=== PATIENT | female | born 1955 | race Caucasian/White ===

== ENCOUNTER → 2016-12-01 | Outpatient (CLI) | payer OTHER ==
[~2016-12-01] MED LIST: ALBUAER INH; AZITHROMYCIN OPB; CALCTAB5 PO; CHOL200027 PO; CIPR-255 PO; CITA10TA8 PO; CITA20TA9 PO; ERYTHROMYCIN TOP; HYDR-5688 PO; HYDR1CAP85 PO; MAGN250T22 PO; POTA10CA28 PO; ZINC 25 MG; flax seed; vit d 3 PO
--- NOTE | 2016-12-01 14:16 | DIAGNOSTIC IMAGING REPORT ---
RIGHT LOWER EXTREMITY VENOUS DOPPLER CLINICAL HISTORY: Right lower extremity pain. COMPARISON STUDY: No previous studies for comparison. TECHNIQUE: Sonography of the deep venous system of the right lower extremity was performed. Compression and augmentation were evaluated. FINDINGS: The common femoral, superficial femoral and popliteal veins were compressible. Augmentation was normal. Flow was shown within the deep calf vessels. IMPRESSION: No evidence of deep venous thrombus within the right lower extremity. Electronically signed by: Boni Foreman M.D. 12/01/2016 2:14 PM Dictated Date/Time: 12/01/2016 2:13 PM
== END | disposition home or self-care (01) ==
LOC: C.ULTRBC 13:31
PROVIDERS: ATTEND Family Medicine
DX: M79.604 Pain in right leg (principal)

== ENCOUNTER 2017-01-06 09:37 | Emergency (ER) | payer OTHER ==
[~2017-01-06] VITALS: Ht 165.1 cm; Wt 72.7 kg
[~2017-01-06 09:37] MED LIST changes: -CHOL200027 PO; -CITA20TA9 PO; -HYDR-5688 PO; -MAGN250T22 PO; -POTA10CA28 PO
[2017-01-06] MEDS ORDERED: SODIUM CHLORIDE 0.9% 1000ML 1,000 ML IV ONE (10:00)
[2017-01-06 10:01] VITALS: TEMP 36.6; Ht 165.1 cm; Wt 72.7 kg
[2017-01-06] MEDS ORDERED: OPTIRAY 320 IV PRN (10:15)
--- NOTE | 2017-01-06 10:29 | DIAGNOSTIC IMAGING REPORT ---
CHEST ONE VIEW PORTABLE CLINICAL HISTORY: Syncope COMPARISON STUDY: 12/10/2011 FINDINGS: The heart is mildly enlarged. There is tortuosity/ectasia of ascending thoracic aorta. There is no lobar consolidation. There are no pleural effusions. There is mild central vascular prominence.[ IMPRESSION: 1. Aortic tortuosity/ectasia 2. Mild vascular prominence without evidence for overt failure 3. No evidence of focal pulmonary consolidation Electronically signed by: Arslan Heath M.D. 01/06/2017 10:28 AM Dictated Date/Time: 01/06/2017 10:27 AM
[2017-01-06] MEDS ORDERED: HYDR-5688 PO (10:32)
[2017-01-06 10:46] LABS: BASO % 0.5 %; BASO ABS # 0.05 K/uL (0-0.2); COMPLETE YES; EOS % 1.2 %; IG% 0.3 %; LYMPH ABS # 0.79 K/uL (1.2-3.4); MEAN CELL VOLUME 94.8 fL (80-100); MEAN CORPUSCULAR HEMOGLOBIN 31.5 pg (25-34); MEAN CORPUSCULAR HGB CONC 33.3 g/dl (32-36); MEAN PLATELET VOLUME 9.3 fL (7.4-10.4); MONO % 8.2 %; NEUT % 81.8 %; PLATELET COUNT 196 K/uL (130-400); RED BLOOD COUNT 4.22 M/uL (4.2-5.4); WHITE BLOOD COUNT 9.83 K/uL (4.8-10.8)
[2017-01-06 10:55] LABS: INR 0.9 (0.9-1.1); PARTIAL THROMBOPLASTIN RATIO 0.8
[2017-01-06 11:06] LABS: BUN/CREATININE RATIO 16.9 (10-20); CALCIUM 8.9 mg/dl (8.5-10.1); MAGNESIUM 1.9 mg/dl (1.8-2.4); POTASSIUM 3.7 mmol/L (3.5-5.1)
[2017-01-06 11:16] LABS: ALB/GLOB RATIO 1.3 (0.9-2); CKMB/CK RATIO 1.6 (0-3.0); THYROID STIMULATING HORMONE 2.3 uIu/ml (0.300-4.500)
[2017-01-06 12:14] LABS: URINE APPEARANCE CLEAR (CLEAR); URINE BILIRUBIN NEG (NEG); URINE COLOR YELLOW; URINE EPITHELIAL CELL AUTO 20-30 /lpf (0-5); URINE NITRITE NEG (NEG); URINE SPECIFIC GRAVITY 1.007 (1.000-1.030); UROBILINOGEN NEG (NEG); ZZUR CULT IF INDIC CLEAN CATCH NO
[2017-01-06 12:21] LABS: MANUAL MICROSCOPIC REQUIRED? NO; REVIEW REQ? NO
--- NOTE | 2017-01-06 12:59 | DIAGNOSTIC IMAGING REPORT ---
CT HEAD WITHOUT CONTRAST (CT) CLINICAL HISTORY: Syncope COMPARISON STUDY: No previous studies for comparison. TECHNIQUE: Axial CT of the brain is performed from the vertex to the skull base. IV contrast was not administered for this examination. CT DOSE: 614.27 mGy.cm FINDINGS: No intra or extra-axial mass lesions are visualized. There is no CT evidence of acute cortical infarction. There is no evidence of midline shift. There is no acute hemorrhage. No calvarial fractures are visualized. There are minor white matter hypodensities likely on a small vessel basis. There is no evidence of pathologic ventricular dilatation. There is no evidence of acute sinusitis IMPRESSION: No acute intracranial findings Electronically signed by: Arslan Heath M.D. 01/06/2017 12:58 PM Dictated Date/Time: 01/06/2017 12:56 PM
--- NOTE | 2017-01-06 13:04 | DIAGNOSTIC IMAGING REPORT ---
CHEST CTA for PULMONARY ARTERIES CT DOSE: 397.06 mGy.cm HISTORY: Chest pain syncope TECHNIQUE: Multiaxial CT images of the chest were performed following the intravenous administration of contrast to evaluate the pulmonary arteries. Maximal intensity projection images were also obtained. COMPARISON STUDY: None. FINDINGS: There is a normal caliber thoracic aorta with no evidence for dissection. There is no evidence for pulmonary embolus. No pleural effusions. No pneumothorax. The liver and spleen are unremarkable. No mediastinal or hilar lymphadenopathy. The central airways are patent. The lungs are clear. IMPRESSION: No evidence for pulmonary embolus. Lungs are clear. Mild cardiomegaly. Electronically signed by: Bakari Thomson M.D. 01/06/2017 1:02 PM Dictated Date/Time: 01/06/2017 12:59 PM
[2017-01-06 14:51] VITALS: BP 141/75; PULSE 71; O2SAT 96
--- NOTE | 2017-01-07 14:27 | EMERGENCY ROOM VISIT NOTE ---
History First contact with patient: 09:42 Chief Complaint: SYNCOPE Stated Complaint: SYNCOPE Nursing Triage Summary: pt arrives via EMS reports on oxycontin for chronic r hip problems took her reg pain meds this AM and drank a cup of coffee sat down on chair and "passed out" reports when I awoke I was diaphoretic and dissoriented and"washed out" report cough X 3 days denies mucus production History of Present Illness The patient is a 61 year old female who presents to the Emergency Room with complaints of syncopal episode that occurred at home this morning. The patient states that she got her for her morning is normal, making her coffee, and went to sit in her rocking chair. She typically reads or works in her journal in the morning, and was starting to do this when she became lightheaded. The patient states that she "passed out", however she did not fall out of her chair or hit the ground. She is unsure how long she was out for, but her coffee was still or when she woke up. The patient has a recent history of some right-sided low back pain, and did take Vicodin this morning on an empty stomach. She has also had some mild head cold symptoms, and took an over-the- counter decongestant. Otherwise she has not had any changes in her medication. She is fever or chills. No chest pain, chest tightness, or shortness of breath for after the event. She does not have persistent discomfort or other extremity pain. She does feel tired. She rates her discomfort a 2/10. Review of Systems More than 10 systems were reviewed and otherwise negative with the exception of history of present illness. Past Medical/Surgical History History of asthma Family History No pertinent family history Social History Smoking Status: Never Smoker Current/Historical Medications Scheduled Albuterol Sulfate (Proventil Hfa), 1 PUFF PO DAILY Cholecalciferol (Vitamin D-3), 2,000 UNITS PO DAILY Magnesium Oxide (Magnesium), 1 TAB PO DAILY Potassium Chloride (Micro-K Ext Rel), 10 MEQ PO DAILY Scheduled PRN Hydrocodone/Acetaminophen 5MG/325MG ([place] 5MG/325MG), 1 TAB PO Q8 PRN for Pain Allergies Coded Allergies: Azithromycin (Verified Allergy, Severe, RASH, SHORT OF BREATH, 01/06/17) Albuterol (Verified Allergy, Intermediate, rash, short of breath, 01/06/17) unsure-- used in nebulizer Lorazepam (Verified Allergy, Intermediate, hallucinations, 01/06/17) Cephalexin (Verified Allergy, Mild, RASH, 01/06/17) Chlorhexidine (Verified Allergy, Mild, itchy and burning, 01/06/17) Hydrocortisone (Verified Allergy, Mild, RASH, 01/06/17) Isopropyl Alcohol (Verified Allergy, Mild, itchy and burning, 01/06/17) Mometasone (Verified Allergy, Mild, RASH, 01/06/17) Nystatin (Verified Allergy, Mild, RASH, 01/06/17) Acetaminophen (Verified Allergy, Unknown, vasovagal, shock symtoms, ) Propoxyphene (Verified Allergy, Unknown, DARVOCET- UNKNOWN RXN, 01/06/17) Hydrocodone (Verified Adverse Reaction, Intermediate, vasovagal, shock symtoms, 01/06/17) Amoxicillin (Verified Adverse Reaction, Mild, TIREDNESS, 01/06/17) Clavulanic Acid (Verified Adverse Reaction, Mild, abdominal cramping, 01/06) Codeine (Verified Adverse Reaction, Mild, TYLENOL W/CODEINE-LETHARGY, 01/06) Hydromorphone (Verified Adverse Reaction, Mild, hallucination/nausea, 01/06) Moxifloxacin (Verified Adverse Reaction, Mild, FATIGUE, 01/06/17) PT ON CIPRO PO AT HOME Physical Exam Vital Signs Date Time Temp Pulse Resp B/P Pulse Ox O2 Delivery O2 Flow Rate FiO2 01/06/17 14:51 71 141/75 96 Room Air 01/06/17 12:57 91 18 152/77 96 Room Air 01/06/17 12:23 92 18 159/79 99 Room Air 01/06/17 10:05 72 01/06/17 10:01 36.6 70 20 157/74 100 Room Air Pain Rating (0-10): 2.0 Physical Exam VITALS: Vitals are noted on the nurse's note and reviewed by myself. Vital signs stable. GENERAL: Well-developed, well-nourished, white female, who is in no acute distress and resting comfortably. Patient is cooperative with the examination. GCS 15. HEAD: Normocephalic atraumatic. EARS: External ear normal. External auditory canals clear, tympanic membranes pearly spaulding without erythema or effusion bilaterally. EYES: Pupils equal round and reactive to light and accommodation. Conjunctivae without injection, sclerae without icterus. Extraocular movements intact. NOSE: Patent, turbinates without inflammation or discharge. MOUTH: Mucous membranes moist. Tonsils are not enlarged. Pharynx without erythema, blood, or exudate. Uvula midline. Airway patent. NECK: Supple without nuchal rigidity. No lymphadenopathy. No thyromegaly. Cervical spine is nontender. HEART: Regular rate and rhythm without murmurs gallops or rubs. LUNGS: Clear to auscultation bilaterally without wheezes, rales or rhonchi. No retractions or accessory muscle use. ABDOMEN: Positive normal bowel sounds x 4. Soft, nontender, without masses or organomegaly. No guarding or rebound tenderness. MUSCULOSKELETAL: No muscle atrophy, erythema, or edema noted. Full range of motion without joint tenderness in all extremities. NEURO: Patient was alert and oriented to person place and time. CN II through XII grossly intact. No focal neurological deficits Medical Decision & Procedures ER Provider Diagnostic Interpretation: CT HEAD WITHOUT CONTRAST (CT) CLINICAL HISTORY: Syncope COMPARISON STUDY: No previous studies for comparison. TECHNIQUE: Axial CT of the brain is performed from the vertex to the skull base. IV contrast was not administered for this examination. CT DOSE: 614.27 mGy.cm FINDINGS: No intra or extra-axial mass lesions are visualized. There is no CT evidence of acute cortical infarction. There is no evidence of midline shift. There is no acute hemorrhage. No calvarial fractures are visualized. There are minor white matter hypodensities likely on a small vessel basis. There is no evidence of pathologic ventricular dilatation. There is no evidence of acute sinusitis IMPRESSION: No acute intracranial findings CHEST CTA for PULMONARY ARTERIES CT DOSE: 397.06 mGy.cm HISTORY: Chest pain syncope TECHNIQUE: Multiaxial CT images of the chest were performed following the intravenous administration of contrast to evaluate the pulmonary arteries. Maximal intensity projection images were also obtained. COMPARISON STUDY: None. FINDINGS: There is a normal caliber thoracic aorta with no evidence for dissection. There is no evidence for pulmonary embolus. No pleural effusions. No pneumothorax. The liver and spleen are unremarkable. No mediastinal or hilar lymphadenopathy. The central airways are patent. The lungs are clear. IMPRESSION: No evidence for pulmonary embolus. Lungs are clear. Mild cardiomegaly. CHEST ONE VIEW PORTABLE CLINICAL HISTORY: Syncope COMPARISON STUDY: 12/10/2011 FINDINGS: The heart is mildly enlarged. There is tortuosity/ectasia of ascending thoracic aorta. There is no lobar consolidation. There are no pleural effusions. There is mild central vascular prominence.[ IMPRESSION: 1. Aortic tortuosity/ectasia 2. Mild vascular prominence without evidence for overt failure 3. No evidence of focal pulmonary consolidation Laboratory Results 01/06/17 10:05 Red Blood Count 4.22, Mean Corpuscular Volume 94.8, Mean Corpuscular Hemoglobin 31.5, Mean Corpuscular Hemoglobin Concent 33.3, Mean Platelet Volume 9.3, Neutrophils (%) (Auto) 81.8, Lymphocytes (%) (Auto) 8.0, Monocytes (%) (Auto) 8.2, Eosinophils (%) (Auto) 1.2, Basophils (%) (Auto) 0.5, Neutrophils # (Auto) 8.03, Lymphocytes # (Auto) 0.79, Monocytes # (Auto) 0.81, Eosinophils # (Auto) 0.12, Basophils # (Auto) 0.05 01/06/17 10:05 Test 01/06/17 10:05 01/06/17 10:07 01/06/17 10:12 01/06/17 11:20 White Blood Count 9.83 K/uL (4.8-10.8) Red Blood Count 4.22 M/uL (4.2-5.4) Hemoglobin 13.3 g/dL (12.0-16.0) Hematocrit 40.0 % (37-47) Mean Corpuscular Volume 94.8 fL (80-100) Mean Corpuscular Hemoglobin 31.5 pg (25-34) Mean Corpuscular Hemoglobin Concent 33.3 g/dl (32-36) Platelet Count 196 K/uL (130-400) Mean Platelet Volume 9.3 fL (7.4-10.4) Neutrophils (%) (Auto) 81.8 % Lymphocytes (%) (Auto) 8.0 % Monocytes (%) (Auto) 8.2 % Eosinophils (%) (Auto) 1.2 % Basophils (%) (Auto) 0.5 % Neutrophils # (Auto) 8.03 K/uL (1.4-6.5) Lymphocytes # (Auto) 0.79 K/uL (1.2-3.4) Monocytes # (Auto) 0.81 K/uL (0.11-0.59) Eosinophils # (Auto) 0.12 K/uL (0-0.5) Basophils # (Auto) 0.05 K/uL (0-0.2) RDW Standard Deviation 43.9 fL (36.4-46.3) RDW Coefficient of Variation 12.8 % (11.5-14.5) Immature Granulocyte % (Auto) 0.3 % Immature Granulocyte # (Auto) 0.03 K/uL (0.00-0.02) Prothrombin Time 10.0 SECONDS (9.0-12.0) Prothromb Time International Ratio 0.9 (0.9-1.1) Activated Partial Thromboplast Time 21.9 SECONDS (21.0-31.0) Partial Thromboplastin Ratio 0.8 Anion Gap 9.0 mmol/L (3-11) Est Creatinine Clear Calc Drug Dose 57.5 ml/min Estimated GFR () 69.4 Estimated GFR (Non- 59.9 BUN/Creatinine Ratio 16.9 (10-20) Calcium Level 8.9 mg/dl (8.5-10.1) Magnesium Level 1.9 mg/dl (1.8-2.4) Total Bilirubin 0.4 mg/dl (0.2-1) Aspartate Amino Transf (AST/SGOT) 38 U/L (15-37) Alanine Aminotransferase (ALT/SGPT) 74 U/L (12-78) Alkaline Phosphatase 51 U/L (45-117) Total Creatine Kinase 103 U/L (26-192) Creatine Kinase MB 1.6 ng/ml (0.5-3.6) Creatine Kinase MB Ratio 1.6 (0-3.0) Total Protein 7.1 gm/dl (6.4-8.2) Albumin 4.0 gm/dl (3.4-5.0) Globulin 3.1 gm/dl (2.5-4.0) Albumin/Globulin Ratio 1.3 (0.9-2) Thyroid Stimulating Hormone (TSH) 2.300 uIu/ml (0.300-4.500) Bedside Glucose 89 mg/dl (70-90) Bedside Troponin I 0.000 ng/ml (0-0.045) Influenza Type A Antigen Neg for Influ A (NEG) Influenza Type B Antigen Neg for Influ B (NEG) Test 01/06/17 11:49 Urine Color YELLOW Urine Appearance CLEAR (CLEAR) Urine pH 7.0 (4.5-7.5) Urine Specific [place] 1.007 (1.000-1.030) Urine Protein NEG (NEG) Urine Glucose (UA) NEG (NEG) Urine Ketones NEG (NEG) Urine Occult Blood 1+ (NEG) Urine Nitrite NEG (NEG) Urine Bilirubin NEG (NEG) Urine Urobilinogen NEG (NEG) Urine Leukocyte Esterase NEG (NEG) Urine WBC (Auto) 1-5 /hpf (0-5) Urine RBC (Auto) 5-10 /hpf (0-4) Urine Hyaline Casts (Auto) 0 /lpf (0-5) Urine Epithelial Cells (Auto) 20-30 /lpf (0-5) Urine Bacteria (Auto) NEG (NEG) Medications Administered Medications (Trade) Dose Ordered Sig/Pedro Route Start Time Stop Time Status Last Admin Dose Admin Sodium Chloride (Nss 1000ml) 1,000 ml @ 999 mls/hr Q1H1M ONCE IV 01/06/17 10:00 01/06/17 11:00 DC 01/06/17 10:00 999 MLS/HR ED Course Physical exam and history were performed. Nursing notes and EMR were reviewed. Patient appears to have had an episode of syncope at home. The episode is odd because the patient was not exertional at this time the stable episode occurred. She does not appear to have any injury or persisting of her symptoms. Patient is typically healthy, however she does have a past history of cancer. Because of this I did have concern for the patient's well-being. IV access was established and labs were obtained. The patient was hydrated and medicated as above. She certainly could have a cardiopulmonary event or dysrhythmic episode to explain her symptoms. I did elect to perform a CT scan of both her head and chest. EKG was performed and was normal sinus rhythm without ischemia or significant ectopy. The patient's blood work is as above and was reviewed. She does not have a significantly elevated white blood cell count, anemia, bandemia, or gross electrolyte imbalance. Lipase and transaminases are nondiagnostic. Urinalysis without signs of infection. Influenza swab was negative. The patient's imaging studies do not show evidence of acute findings to explain the patient's symptoms. Overall the patient was monitored on the vehicle monitor technician for greater than 5 hours here in the emergency department. She did not have any ectopy or dysrhythmic episodes. I discussed the case with my attending physician, Dr. Zhang, and we feel the patient is stable for discharge home. She has had a negative evaluation here with multiple normal testings. I do suspect that her symptoms were from taking both cold medicine and Vicodin on an empty stomach this morning. The patient does have a preference for discharge home, and this does appear reasonable. The patient will need to follow with her PCP or haunted history tour guide with any ongoing or persisting symptoms. She was recently went back to the ER with any new, worsening, or concerning episodes. The chart was completed utilizing [employer] Voice Recognition Software. Grammatical errors, random word insertions, pronoun errors, and incomplete sentences are an occasional consequence of this system due to software limitations, ambient noise, and hardware issues. Any formal questions or concerns about the content, text, or information contained within the body of this dictation should be directly addressed to the provider for clarification. . Medical Decision Differential diagnosis: Etiologies such as vasovagal event, infection, hypoglycemia, electrolyte abnormalities, cardiac sources, intracerebral event, toxicologic, neurologic, as well as others were entertained. Impression Primary Impression: Syncope Departure Information Dispostion Home / Self-Care Condition GOOD Referrals Jose Ramon Brown D.O. (PCP) Forms HOME CARE DOCUMENTATION FORM, IMPORTANT VISIT INFORMATION Patient Instructions My [facility] Additional Instructions You were seen and evaluated today on an emergency basis only. This is not a substitute for, or an effort to provide, complete comprehensive medical care. It is not possible to recognize and treat all injuries or illnesses in a single emergency department visit. For this reason it is recommended that you followup with your primary care physician and haunted history tour guide this week for ongoing care and evaluation. Drink plenty fluids and remain well hydrated. You are welcome to return to the emergency department anytime with new, worsening, or concerning symptoms.
[2017-06-27] MEDS ORDERED: CHOL200027 PO (10:32)
[2017-06-27] MEDS ORDERED: MAGN250T22 PO (10:32)
[2017-06-27] MEDS ORDERED: ALBUAER INH (10:32)
[2017-06-27] MEDS ORDERED: POTA10CA28 PO (10:32)
== END 2017-01-06 15:03 | disposition home or self-care (01) ==
LOC: EDBD 09:37 → C.EDA 09:38
DX: R55 Syncope and collapse (principal); J45.909 Unspecified asthma, uncomplicated; Z79.899 Other long term (current) drug therapy; Z88.1 Allergy status to other antibiotic agents; Z88.5 Allergy status to narcotic agent; Z88.8 Allergy status to other drugs, medicaments and biological substances; Z85.9 Personal history of malignant neoplasm, unspecified

== ENCOUNTER → 2017-02-18 | Outpatient (CLI) | payer OTHER ==
[~2017-02-18] MED LIST changes: -AZITHROMYCIN OPB; -CALCTAB5 PO; +CHOL200027 PO; -CIPR-255 PO; -CITA10TA8 PO; +CITA20TA9 PO; -ERYTHROMYCIN TOP; +HYDR-5688 PO; -HYDR1CAP85 PO; +MAGN250T22 PO; +POTA10CA28 PO; -ZINC 25 MG; -flax seed; -vit d 3 PO
--- NOTE | 2017-02-18 08:44 | DIAGNOSTIC IMAGING REPORT ---
LUMBAR SPINE MRI HISTORY: Low back pain and right hip pain. TECHNIQUE: Multiplanar multisequence MRI of the lumbar spine was performed without the use of contrast. COMPARISON: Lumbar spine 08/28/2015. FINDINGS: For the purpose of the report the L5-S1 disc space will be located on axial image 27 of 30. There is 3 mm of anterolisthesis of L4 and L5. Severe disc space narrowing at L5-S1. Remaining disc spaces are preserved. No fracture or subluxation. Marrow edema within the right L4-L5 pedicles. No fractures identified. The conus terminates at the L1 level. 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 L1-L2: No significant central canal or neural foraminal narrowing. L2-L3: No significant central canal or neural foraminal narrowing. Tiny broad-based posterior disc bulge with a tiny left foraminal annular tear. L3-L4: No significant central canal or neural foraminal narrowing. Tiny broad-based posterior disc bulge. L4-L5: Tiny broad-based posterior disc bulge with a left foraminal annular tear. No disc herniations identified. There is a 13 x 9 x 9 cm T2 hyperintense, T1 hypointense extra dural structure abutting the right L4-5 facet. This protrudes into the right side of the central canal and compresses the transiting right L5 nerve root and displaces the transiting right S1 nerve root. This demonstrates a hypointense rim and likely represents a synovial cyst. Moderate facet degenerative changes at this level. This results in mild right-sided central canal narrowing. There is also mild bilateral neural foraminal narrowing. L5-S1: Tiny broad-based posterior disc bulge without significant central canal narrowing. There is mild right and moderate left neural foraminal narrowing. IMPRESSION: There is a 13 x 9 x 9 cm T2 hyperintense, T1 hypointense extradural structure abutting the right L4-5 facet. This protrudes into the right side of the central canal and compresses the transiting right L5 nerve root and displaces the transiting right S1 nerve root. This demonstrates a hypointense rim and likely represents a synovial cyst. Electronically signed by: Lui Aviles M.D. 02/18/2017 8:42 AM Dictated Date/Time: 02/18/2017 8:19 AM
== END | disposition home or self-care (01) ==
LOC: C.MRIBC 07:13
PROVIDERS: ATTEND Orthopaedic Surgery
DX: M54.5 Low back pain (principal)

== ENCOUNTER 2017-06-27 21:22 | Emergency (ER) | payer OTHER ==
[~2017-06-27] VITALS: Ht 165.1 cm; Wt 72.0 kg
[~2017-06-27 21:22] MED LIST changes: -CITA20TA9 PO
[2017-06-27 21:34] VITALS: TEMP 37; Ht 165.1 cm; Wt 72.0 kg
[2017-06-27] MEDS ORDERED: GELATIN SPONGE 12-7MM ONE (21:50)
[2017-06-27 22:09] VITALS: BP 111/60; PULSE 70; O2SAT 95
[2017-06-27] MEDS ORDERED: CITA20TA9 PO (22:09)
--- NOTE | 2017-06-27 22:32 | EMERGENCY ROOM VISIT NOTE ---
ED Visit Note First contact with patient: 21:41 CHIEF COMPLAINT: Finger laceration HISTORY OF PRESENT ILLNESS: This 62 yo patient presents to the emergency department after cutting the distal aspect of the right first finger on a grater. The bleeding has not stopped. Denies weakness or numbness of the finger. The patient has full range of motion of the fingers. The patient rates the pain as mild and 2/10. The patient denies any other injuries. The patient' s tetanus shot is up to date. REVIEW OF SYSTEMS: A 6 system review of systems was completed with positives and pertinent negatives listed in the HPI. ALLERGIES: Albuterol, reviewed MEDICATIONS: Reviewed PMH: Anxiety, hysterectomy, reviewed SOCIAL HISTORY: No drug use PHYSICAL EXAM: Vital Signs: Reviewed Nurse's notes, vital signs stable. GENERAL : Pleasant female, in no acute distress, well developed, well nourished. SKIN: There is a 5 mm skin avulsion to the distal aspect of the right thumb. The edges do not gape apart with traction. There is no foreign material in the wound and it looks clean. There is bleeding. No deep structures such as tendons , bones, or significant blood vessels are seen in the base of the wound. Extension and flexion of the finger is full and strong. Full range of motion of the wrist and other fingers. Capillary refill less than 2 seconds. Normal sensation to light and sharp touch. EMERGENCY DEPARTMENT COURSE: I examined the patient. There is cleansed and Gelfoam was placed. Bandage is placed over this. Hemostasis was achieved. Patient was counseled on signs and symptoms of infection and on wound care. All cushions are answered. She is advised to return to the ER immediately for severe pain, fever, redness, worsening signs or symptoms or as needed. The patient was discharged home in good condition. DIAGNOSIS: Right thumb skin avulsion DISCHARGE INSTRUCTIONS & TREATMENT: As below Current/Historical Medications Scheduled Cholecalciferol (Vitamin D-3), 2,000 INTER.UNIT PO DAILY Citalopram Hydrobromide (Celexa), 20 MG PO DAILY Magnesium Oxide (Magnesium), 250 MG PO DAILY Potassium Chloride (Micro-K Ext Rel), 10 MEQ PO DAILY Scheduled PRN Albuterol Sulfate (Proventil Hfa), 2 PUFFS INH UD PRN for Prior to Exercise Allergies Coded Allergies: Azithromycin (Verified Allergy, Severe, RASH, SHORT OF BREATH, 01/06/17) Albuterol (Verified Allergy, Intermediate, rash, short of breath, 01/06/17) unsure-- used in nebulizer Lorazepam (Verified Allergy, Intermediate, hallucinations, 01/06/17) Cephalexin (Verified Allergy, Mild, RASH, 01/06/17) Chlorhexidine (Verified Allergy, Mild, itchy and burning, 01/06/17) Hydrocortisone (Verified Allergy, Mild, RASH, 01/06/17) Isopropyl Alcohol (Verified Allergy, Mild, itchy and burning, 01/06/17) Mometasone (Verified Allergy, Mild, RASH, 01/06/17) Nystatin (Verified Allergy, Mild, RASH, 01/06/17) Propoxyphene (Verified Allergy, Unknown, DARVOCET- UNKNOWN RXN, 01/06/17) Amoxicillin (Verified Adverse Reaction, Mild, TIREDNESS, 01/06/17) Clavulanic Acid (Verified Adverse Reaction, Mild, abdominal cramping, 01/06) Hydromorphone (Verified Adverse Reaction, Mild, hallucination/nausea, 01/06) Moxifloxacin (Verified Adverse Reaction, Mild, FATIGUE, 01/06/17) PT ON CIPRO PO AT HOME Vital Signs Date Time Temp Pulse Resp B/P (MAP) Pulse Ox O2 Delivery O2 Flow Rate FiO2 06/27/17 22:09 70 18 111/60 95 06/27/17 21:34 37.0 80 18 129/67 94 Room Air Departure Information Impression Primary Impression: Avulsion of skin of finger Dispostion Home / Self-Care Condition GOOD Referrals Jose Ramon Brown, D.O. (PCP) No Doctor, Assigned Forms WORK / SCHOOL INSTRUCTIONS, HOME CARE DOCUMENTATION FORM, IMPORTANT VISIT INFORMATION Patient Instructions My [facility], ED Avulsion Dermal Additional Instructions Keep dressing in place for 48 hrs, then remove. Soak foam in water until it falls off easily, then clean wound daily, cover with an antibiotic ointment and keep covered until it heals. Return for any signs of infection (increasing redness, swelling, drainage, fever). Ice and elevate for swelling and pain. Ibuprofen 600 mg and Tylenol 1000 mg every 6 hrs for pain (Maximum 3000 mg Tylenol in 24 hr period). Keep covered when in sun until fully healed then SPF 50 or higher for one year. Vitamin E oil if desired two weeks after fully healed for reduction of scar.
== END 2017-06-27 22:09 | disposition home or self-care (01) ==
LOC: C.EDB 21:23 → C.EDC 22:09
DX: S61.001A Unspecified open wound of right thumb without damage to nail, initial encounter (principal); F41.9 Anxiety disorder, unspecified; Z79.899 Other long term (current) drug therapy; W27.4XXA Contact with kitchen utensil, initial encounter

== ENCOUNTER 2019-09-20 03:08 | Observation (INO) ==
--- OUTSIDE RECORDS SUMMARY | 2019-09-20 03:11 | External Medical Summary | Continuity of Care Document ---
:1955 Author Name Yuki Bolden, Provider Address Unavailable Unavailable , Care Team Providers Name Role Phone NonMNPG Yuan, Provider Unavailable [email or web address] Dye Unavailable Unavailable Unavailable Unavailable Unavailable Problems Uterine cancer (179) (C55) Allergies and Adverse Reactions Augmentin TABS (Allergy) Avelox TABS (Allergy) Cortisone POWD (Allergy) Dilantin CAPS (Allergy) Keflex TABS (Allergy) Nasonex SUSP (Allergy) Medications Erythromycin GEL Refills: 0 Charmaine Allergy 180 MG Oral Tablet Refills: 0 Proventil HFA AERS Refills: 0 Calcium TABS Refills: 0 LORazepam TABS Refills: 0 Dexamethasone TABS Refills: 0 Zofran TABS Refills: 0 Procedures History of Tonsillectomy Status: Complet ed History of Hysterectomy Status: Complete d Immunizations Immunizations not documented Social History - Smoking Status Never smoker Plan of Treatment Planned Observations Planned Goals not documented Results No Known Results Results not documented
[2019-09-20 03:37] LABS: Basophils # (auto) 0.03 K/uL (0-0.2); Basophils % (auto) 0.3 %; Eosinophils # (auto) 0.52 K/uL (0-0.5); Eosinophils % (auto) 5.9 %; Hematocrit (blood only) 41.2 % (37-47); Hemoglobin 13.4 g/dL (12.0-16.0); Immature Granulocytes # (auto) 0.01 K/uL (0.00-0.02); Immature Granulocytes % (auto) 0.1 %; Lymphocytes # (auto) 2.78 K/uL (1.2-3.4); Lymphocytes % (auto) 31.4 %; Mean Corpuscular Hemoglobin 30.8 pg (25-34); Mean Corpuscular Hgb Conc 32.5 g/dL (32-36); Mean Corpuscular Volume 94.7 fL (80-100); Mean Platelet Volume 9.4 fL (7.4-10.4); Monocytes # (auto) 0.74 K/uL (0.11-0.59); Monocytes % (auto) 8.4 %; Neutrophils # (auto) 4.77 K/uL (1.4-6.5); Neutrophils % (auto) 53.9 %; Platelet Count 233 K/uL (130-400); RDW Standard Deviation 45.5 fL (36.4-46.3); Red Blood Count 4.35 M/uL (4.2-5.4); White Blood Count 8.85 K/uL (4.8-10.8)
[2019-09-20 03:58] LABS: Alanine Aminotransferase 27 U/L (12-78); Albumin Level 4.1 gm/dl (3.4-5.0); Aspartate Aminotransferase 18 U/L (15-37); BUN Creatinine Ratio 15.7 (10-20); Blood Urea Nitrogen 17 mg/dl (7-18); Calcium 9.6 mg/dl (8.5-10.1); Carbon Dioxide 28 mmol/L (21-32); Chloride 105 mmol/L (98-107); Creatinine Clr Calc Pharmacy 50.9 ml/min; Est GFR (African American) 62.7; Est GFR (Non-African American) 54.1; Glucose 103 mg/dl (70-99); Lipase 118 U/L (73-393); Potassium 3.5 mmol/L (3.5-5.1); Sodium 140 mmol/L (136-145)
[2019-09-20 04:03] LABS: Albumin Globulin Ratio 1.2 (0.9-2); Alkaline Phosphatase 74 U/L (45-117); Bilirubin,Total 0.4 mg/dl (0.2-1); Globulin 3.5 gm/dl (2.5-4.0); Total Protein 7.6 gm/dl (6.4-8.2); Troponin I < 0.015 ng/ml (0-0.045)
[2019-09-20] MEDS ORDERED: ASPIRIN CHEW 324 MG PO STA (04:11)
[2019-09-20] MEDS ORDERED: KETOROLAC 30 MG/ML VIAL IV STA (04:11)
--- NOTE | 2019-09-20 05:32 | Emergency Department Note ---
Entered by Barbara Roman acting as a scribe for History of Present Illness General Chief complaint: Chest Pain Stated complaint: SHARP PAIN IN CHEST,RT SIDE OF NECK,SHOULDER PAIN Time Seen by Provider: 09/20/19 03:13 Source: patient History of Present Illness Onset (ago): hour(s) 4 Location: chest (right-sided) Pain Consistency: + other (persistent ) Maximum Pain Intensity: 6 Quality: + sharp Exacerbated By: + other (deep breaths; lying on her side ) Associated symptoms: + other (positive neck pain; positive base of head pain; positive right shoulder pain; negative abdominal pain); no diaphoresis and no shortness of breath Treatments prior to arrival: other (volteran gel) The patient is a 64 year old female who presents to the Emergency Room with complaints of persistent right-sided chest pain that began approximately 4 hours prior to arrival. The patient describes this as sharp. The patient reports that 30 minutes prior to this she had some neck pain, put some voltaren gel on it, and went to bed. The patient states that when she woke up with her chest pain, she had some pain at the base of her head, down her neck, and into her right shoulder. The patient states that her chest pain is exacerbated with lying on her side and deep breaths. The patient denies abdominal pain, shortness of breath, and sweating. She states that she sees Cardiology regularly for her history of PVCs. The patient states that she returned from a trip to [facility] [place] approximately 3 weeks ago. The patient states that she has a history of uterine and ovarian cancer. Home Medications Home Medications Medication Instructions Recorded Confirmed Type albuterol sulfate 2 puff INHALATION DIRECTED PRN 09/20/19 09/20/19 History calcium carbonate-vitamin D3 1 tab PO BID 09/20/19 09/20/19 History [Calcium 600 + D(3)] cholecalciferol (vitamin D3) 2,000 unit PO DAILY 09/20/19 09/20/19 History [Vitamin D3] diclofenac sodium [Voltaren] 2 g TOPICAL DIRECTED PRN 09/20/19 09/20/19 History erythromycin with ethanol 1 applic TOPICAL DIRECTED PRN 09/20/19 09/20/19 History levothyroxine 50 mcg PO DAILY 09/20/19 09/20/19 History magnesium 250 mg PO DAILY 09/20/19 09/20/19 History potassium chloride 10 meq PO DAILY 09/20/19 09/20/19 History Allergies Allergy/AdvReac Type Severity Reaction Status Date / Time mivacurium Allergy Severe RASH, Verified 09/20/19 03:43 SHORT OF BREATH azithromycin Allergy Intermediate SOB, RASH Verified 09/20/19 03:43 lorazepam Allergy Intermediate hallucinati Verified 09/20/19 03:43 ons cephalexin Allergy Mild RASH Verified 09/20/19 03:43 chlorhexidine Allergy Mild itchy and Verified 09/20/19 03:43 burning hydrocortisone Allergy Mild RASH Verified 09/20/19 03:43 mometasone furoate Allergy Mild RASH Verified 09/20/19 03:43 nystatin Allergy Mild RASH Verified 09/20/19 03:43 propoxyphene Allergy Unknown DARVOCET- Verified 09/20/19 03:43 UNKNOWN RXN methocarbamol [From Robaxin] AdvReac Severe SEVERE Verified 09/20/19 03:43 TREMORS miconazole [From Monistat 7] AdvReac Intermediate VAGINAL Verified 09/20/19 03:43 BURNING amoxicillin AdvReac Mild TIREDNESS Verified 09/20/19 03:43 clavulanic acid AdvReac Mild abdominal Verified 09/20/19 03:43 cramping hydromorphone AdvReac Mild hallucinati Verified 09/20/19 03:43 on/nausea moxifloxacin AdvReac Mild FATIGUE Verified 09/20/19 03:43 DELTAZONE/PREDIZONE Allergy Severe MENTALLY Uncoded 09/20/19 03:43 UNABLE TO FUNCTION OR DO ADL'S, AGGRESSIVENESS. Past Med/Surg History Medical History Ovarian cancer PVCs (premature ventricular contractions) Uterine cancer Family History Other No pertinent family history in first degree relatives Social History Preferred Language: Monegasque Feels Safe at Home: Yes Smoking Status: Never smoker Review of Systems See HPI for pertinent positives & negatives. and A total of 10 systems reviewed and were otherwise negative Physical Exam Vital Signs Vital Signs - 24 hr 09/20/19 03:11 09/20/19 03:23 09/20/19 03:24 Temperature 36.3 C L Temperature Source Oral Sepsis Recent Fever Within 48 Hours No Sepsis New/Unexplained Change in Mental Status No Sepsis Action Taken by Nursing No Action Required Pulse Rate 80 77 81 Pulse Rate from SpO2 Sensor 82 Respiratory Rate 16 20 28 H Blood Pressure 150/82 H 169/94 H Blood Pressure Mean 104 119 Pulse Oximetry 98 99 98 Oxygen Delivery Method Room Air Room Air 09/20/19 03:27 09/20/19 03:30 09/20/19 04:00 Temperature Temperature Source Sepsis Recent Fever Within 48 Hours Sepsis New/Unexplained Change in Mental Status Sepsis Action Taken by Nursing Pulse Rate 79 77 74 Pulse Rate from SpO2 Sensor 77 77 74 Respiratory Rate 24 19 14 Blood Pressure Blood Pressure Mean Pulse Oximetry 99 96 97 Oxygen Delivery Method 09/20/19 04:19 09/20/19 04:30 09/20/19 05:00 Temperature Temperature Source Sepsis Recent Fever Within 48 Hours Sepsis New/Unexplained Change in Mental Status Sepsis Action Taken by Nursing Pulse Rate 87 83 70 Pulse Rate from SpO2 Sensor 80 71 Respiratory Rate 20 21 15 Blood Pressure 158/95 H 170/85 H 137/82 Blood Pressure Mean 116 113 100 Pulse Oximetry 97 95 Oxygen Delivery Method HEENT: Head - normocephalic and atraumatic Pupils are equal, round, and reactive to light. Extraocular eye muscles are intact, and sclera are anicteric. Nose - moist nasal mucosa without discharge. Mouth - moist buccal mucosa. Oropharynx is nonerythematous and there is no tonsillar exudate or edema noted. Neck: Supple; no JVD, nuchal rigidity, cervical lymphadenopathy Heart: Regular rate and rhythm. There is a normal S1 and S2 with no murmurs, clicks, or gallops appreciated. Lungs: Clear to auscultation bilaterally with no wheezes, rales, or rhonchi. Abdomen: Soft, completely nontender, nondistended, with good bowel sounds. There are no palpable pulsatile masses or hepatosplenomegaly. There is no guarding, rigidity, or rebound noted. Extremities: No evidence of cyanosis, clubbing, or edema. There are easily palpable peripheral pulses. Skin: warm and dry with good turgor and no rashes. Course 0316: Past medical records reviewed. The patient was evaluated in room B4B. A complete history and physical exam was performed. A twelve-lead EKG was obtained. An IV lock was initiated and labs were drawn as above. The patient will have a chest x-ray performed. 0405: Upon reevaluation, the patient is still having pain. She states that this pain is more in her neck than in her chest. She will get Toradol and Aspirin. 0412: Ordered Aspirin 324 mg PO and Toradol 30 mg IV. 0440: I answered the patient's questions about her ECG. She has had significant relief of her discomfort. 0446: [facility] the [facility] the patient for further evaluation. Administered Medications Discontinued Medications Aspirin (Aspirin) 324 mg PO NOW STA Stop: 09/20/19 04:12 Last Admin: 09/20/19 04:17 Dose: 324 mg Documented by: [id number] Ketorolac Tromethamine (Toradol) 30 mg IV NOW STA Stop: 09/20/19 04:12 Last Admin: 09/20/19 04:17 Dose: 30 mg Documented by: [id number] Medical Decision Making Differential Diagnosis Differential diagnoses include costochondritis, anxiety, PE, GERD, cardiac ischemia, and others were considered. Medical Records Attestation: I reviewed the patient's medical records. Home Medications Current Medication List: was personally reviewed by me Laboratory Data Attestation: I reviewed the patient's lab results. Result diagrams: 09/20/19 03:24 09/20/19 03:24 Lab Results 09/20/19 09/20/19 Range/Units 03:24 03:24 WBC 8.85 (4.8-10.8) K/uL RBC 4.35 (4.2-5.4) M/uL Hgb 13.4 (12.0-16.0) g/dL Hct 41.2 (37-47) % MCV 94.7 (80-100) fL MCH 30.8 (25-34) pg MCHC 32.5 (32-36) g/dL RDW Std Deviation 45.5 (36.4-46.3) fL RDW Coeff of Chemo 13.0 (11.5-14.5) % Plt Count 233 (130-400) K/uL MPV 9.4 (7.4-10.4) fL Immature Gran % (Auto) 0.1 % Neut % (Auto) 53.9 % Lymph % (Auto) 31.4 % Izard % (Auto) 8.4 % Eos % (Auto) 5.9 % Baso % (Auto) 0.3 % Immature Gran # (Auto) 0.01 (0.00-0.02) K/uL Neut # (Auto) 4.77 (1.4-6.5) K/uL Lymph # (Auto) 2.78 (1.2-3.4) K/uL Izard # (Auto) 0.74 H (0.11-0.59) K/uL Eos # (Auto) 0.52 H (0-0.5) K/uL Baso # (Auto) 0.03 (0-0.2) K/uL Sodium 140 (136-145) mmol/L Potassium 3.5 (3.5-5.1) mmol/L Chloride 105 (98-107) mmol/L Carbon Dioxide 28 (21-32) mmol/L Anion Gap 7.0 (3-11) BUN 17 (7-18) mg/dl Creatinine 1.07 (0.6-1.2) mg/dl Est Cr Clr Drug Dosing 50.9 ml/min Est GFR ( Amer) 62.7 Est GFR (Non-Af Amer) 54.1 BUN/Creatinine Ratio 15.7 (10-20) Glucose 103 H (70-99) mg/dl Calcium 9.6 (8.5-10.1) mg/dl Total Bilirubin 0.4 (0.2-1) mg/dl AST 18 (15-37) U/L ALT 27 (12-78) U/L Alkaline Phosphatase 74 (45-117) U/L Troponin I < 0.015 (0-0.045) ng/ml Total Protein 7.6 (6.4-8.2) gm/dl Albumin 4.1 (3.4-5.0) gm/dl Globulin 3.5 (2.5-4.0) gm/dl Albumin/Globulin Ratio 1.2 (0.9-2) Lipase 118 (73-393) U/L Imaging Data Attestation: I personally reviewed and interpreted this imaging study as follows: My Impression: CHEST X-RAY 1 VIEW: Borderline cardiomegaly. No pulmonary infiltrates. No focal pulmonary consolidation. ECG Data Attestation: I personally reviewed and interpreted this ECG as follows: Indication: + chest pain Rate (beats per minute): 77 Rhythm: + normal sinus ECG ST segments: + T-wave inversions ECG Findings: no PACs and no PVCs Comparison ECG Date: from (04/26/19) Change: the following changes noted (T-wave inversions are new ) Blood Pressure Blood Pressure Findings: Elevated blood pressure Blood Pressure Disposition: further management by hospitalist MDM Narrative The patient is a 64 year old female who presents to the Emergency Room with complaints of persistent right-sided chest pain that began approximately 4 hours prior to arrival. The patient does have a history of long distance travel approximately 3 weeks ago as well as a remote history of cancer so we considered the possibility of a PE. However, the patient has absolutely no shortness of breath, tachycardia or hypoxia. Chest x-ray was unremarkable. EKG changes are somewhat atypical but still concerning in the inferior leads. I discussed the case with the [facility] Hospitalist and they will evaluate for further management. Impression & Plan Right-sided chest pain, Acute electrocardiogram changes, Neck pain on right side Discharge Plan Visit Data Chief Complaint: Chest Pain Stated Complaint: SHARP PAIN IN CHEST,RT SIDE OF NECK,SHOULDER PAIN ED Provider: Carley Angeles Discharge Problem: Right-sided chest pain, Acute electrocardiogram changes, Neck pain on right side Patient Disposition: Being Evaluated by Hospitalist Forms Stand Alone Forms: Call Back Authorization, [facility] Prescriptions Prescriptions: No Action potassium chloride 10 mEq Capsule, Extended Release 10 meq PO DAILY RF: 0 calcium carbonate-vitamin D3 [Calcium 600 + D(3)] 600 mg(1,500mg) -200 unit Tablet 1 tab PO BID RF: 0 levothyroxine 50 mcg Tablet 50 mcg PO DAILY RF: 0 magnesium 250 mg Tablet 250 mg PO DAILY RF: 0 albuterol sulfate 90 mcg/actuation Hfa Aerosol Inhaler 2 puff INHALATION DIRECTED PRN (Reason: 15 MIN PRIOR TO EXERCISE.) RF: 0 erythromycin with ethanol 2 % solution 1 applic topical DIRECTED PRN (Reason: [place] AREAS) RF: 0 diclofenac sodium [Voltaren] 1 % Gel 2 g TOPICAL DIRECTED PRN (Reason: Pain) RF: 0 cholecalciferol (vitamin D3) [Vitamin D3] 2,000 unit Capsule 2,000 unit PO DAILY RF: 0 Referrals Referrals: Jose Ramon Brown, DO [Primary Care Provider] - The scribe's documentation has been prepared under my direction and personally reviewed by me in its entirety. I confirm that the note above accurately reflects all work, treatment, procedures, and medical decision making performed by me.
--- NOTE | 2019-09-20 06:08 | XRay Report ---
XR chest 1V portable CLINICAL HISTORY: Chest Pain pain COMPARISON STUDY: 01/06/2017 FINDINGS: The bones soft tissues and hemidiaphragms are normal. The cardiomediastinal silhouette is n ormal. The lungs are clear. The pulmonary vasculature is normal. IMPRESSION: Negative chest. The above report was generated using voice recognition software. It may contain grammatical, syntax or spelling errors. Electronically signed by: Bakari Thomson M.D. 09/20/2019 6:06 AM
[2019-09-20] MEDS ORDERED: MoRPHine SULFATE 2 MG/ML CARP IV PRN (06:14)
[2019-09-20] MEDS ORDERED: ONDANSETRON INJ 2 MG/ML 2 ML VIAL IV PRN (06:14)
[2019-09-20] MEDS ORDERED: NITROGLYCERIN SL 0.4 MG/TAB TAB SL PRN (06:14)
[2019-09-20] MEDS ORDERED: ALBUTEROL HFA 8 GM INHALER INH PRN (06:14)
[2019-09-20] MEDS ORDERED: DICLOFENAC SOD 1% GEL 100 GM TUBE EXT PRN (06:14)
[2019-09-20] MEDS ORDERED: ACETAMINOPHEN 325 MG TAB PO PRN (06:14)
[2019-09-20] MEDS ORDERED: LEVOTHYROXINE SODIUM 50 MCG TABLET PO SCH (07:00)
[2019-09-20 07:31] LABS: D Dimer 450 ug/L FEU (0-500)
--- NOTE | 2019-09-20 07:57 | History and Physical Report ---
DATE OF ADMISSION: 09/20/2019 CHIEF COMPLAINT: Chest pain. HISTORY OF PRESENT ILLNESS: This is a 64-year-old female with past medical history significant for hypothyroidism, history of reactive depression, history of uterine and ovarian cancer status post hysterectomy with oophorectomy and status post 3 cycles of chemo, history of ventricular ectopy, was on beta david for 3 months in the past, chronic rhinitis, history of left Loomis's palsy, hip dysplasia who lives alone, comes because of chest pain. The patient says before she went to sleep, she had right-sided neck pain and in the night she woke up and the neck pain radiated to the chest, moderate in severity. She could not take a deep breath causing the pain to be more, so she drove herself to the ER. From the parking lot she walked into the ER, she had to hunch her shoulders and seemed to be making the pain little worse. In the ER, she got aspirin and Toradol. Neck pain, chest pain got resolved now, she is resting comfortably. She still has some mild pain while taking deep breath. Resting comfortably and hemodynamically stable. Denies any shortness of breath, no nausea, sweating or dizziness this episode. No fever, no chills, has on and off dry cough since a month. No headaches, no blurred visions, no earache, no runny nose, no sore throat, no dysphagia. Appetite is okay. Sleeps okay. Otherwise, ambulates and climbs steps okay without any problems. No abdominal pain. Normal bowel and bladder movements. No black stools or blood in stools, no burning micturition or hematuria. No swelling, no rash. ALLERGIES: ROBAXIN, CHLORHEXIDINE, NYSTATIN, AZITHROMYCIN, CEPHALEXIN, DILAUDID, KEFLEX, ECONAZOLE, MONISTAT, MOMETASONE FUROATE. PAST MEDICAL HISTORY: As mentioned above. PAST SURGICAL HISTORY: Total abdominal hysterectomy with appendectomy, lumbosacral epidural shot, right lumbar hemilaminectomy, removal of tonsils, total abdominal hysterectomy radical dissection for debulk with removal of the tubes, trimalleolar ankle fracture repair. MEDICATIONS: The patient is on diclofenac sodium 2 g b.i.d. p.r.n., levothyroxine 50 mcg daily, potassium chloride 10 mEq daily, albuterol 2 puffs p.r.n., erythromycin 2% solution applied to face p.r.n., Claritin 10 mg p.o. daily p.r.n., magnesium 250 mg p.o. daily, vitamin D 2000 units p.o. daily, calcium plus vitamin D 2 tablets daily. FAMILY HISTORY: Significant for father had alcoholism, arthritis, AV maggie failure, hypertension. Mother has anemia, breast cancer, liver cancer, thyroid disorder. Sister of septicemia. SOCIAL HISTORY: Lives alone. No smoking. Alcohol occasional. No drug use. REVIEW OF SYMPTOMS: As per HPI. Rest of review of systems negative. PHYSICAL EXAMINATION: GENERAL: The patient is of moderate build, not in acute distress. VITAL SIGNS: Temperature 36.3, pulse 70, respiratory rate 15, blood pressure 137/82, oxygen 98% room air. HEENT: No pallor, no icterus. Pupils equal, round, reactive to light. NECK: No JVD. No lymphadenopathy, no carotid bruit. CARDIOVASCULAR: S1, S2 heard, regular rate and rhythm, no murmur, no gallop. RESPIRATORY SYSTEM: Normal AP diameter. No accessory muscle use. No wheezing, no crackles. ABDOMEN: Soft, bowel sounds present, nontender. No distention. CENTRAL NERVOUS SYSTEM: Cranial nerves II-XII grossly nonfocal. EXTREMITIES: No edema, no erythema. LABORATORY DATA: WBC 8.8, hemoglobin 13.0, hematocrit 41.2, platelets 233. Sodium 144, potassium 3.5, chloride 105, bicarbonate 28, BUN 17, creatinine 1.07, serum glucose 103, calcium 9.6, total bilirubin 0.4, AST of 18, ALT 27, alkaline phosphatase is 74. Troponin I less than 0.015. Lipase 118. IMAGING: Chest x-ray: No acute findings seen. EKG: Shows normal sinus rhythm with rate of 77, possible left atrial enlargement, nonspecific T-wave inversions in lead III and aVF. This T-wave inversions were present in 12/2016 EKG but in EKG done in 04/2019 there were no T-wave inversions. ASSESSMENT AND PLAN: This is a 64-year-old female who presents with chest pain. 1. Chest pain, presents with right-sided neck pain radiating to the chest. The pain was more when taking deep breath, improved with dose of aspirin and dose of Toradol. Troponin is negative. EKG shows some T-wave inversions in leads III and aVF which were present in the previous EKG in 2017, but were absent in 2019 EKG. Follows with Cardiology once a year because of history of premature ventricular contractions in the past, was on beta david in 2012 for 3 months and on potassium supplement and magnesium supplement currently. The pain was more when taking deep breath . Possible pleurisy. We will check a D-dimer and we will observe in tele floor. Serial cardiac enzymes, echo and consult Cardiology for possible stress test. 2. History of uterine and ovarian cancer diagnosed in 2011, stage I, status post total abdominal hysterectomy with oophorectomy and appendectomy, had 3 cycles of chemo, follows with Hematology/Oncology every year. 3. Hypothyroidism, on Synthroid. 4. Deep venous thrombosis prophylaxis, sequential compression devices. 5. Disposition: Observation in tele floor. Expect to discharge home and follow with her family doctor. Level 1 full code, only if good chance of recovery. MTDD
[2019-09-20] MEDS ORDERED: POTASSIUM CHLORIDE 10 MEQ TABCR PO SCH (09:00)
[2019-09-20] MEDS ORDERED: MAGNESIUM OXIDE 400 MG TAB PO SCH (09:00)
[2019-09-20] MEDS ORDERED: CALCIUM CARBONATE 1250MG TAB PO SCH (09:00)
[2019-09-20] MEDS ORDERED: CHOLECALCIFEROL 1,000 UNITS TAB PO SCH (09:00)
--- NOTE | 2019-09-20 10:58 | Cardiology Consultation ---
Date of Consultation September 20, 2019 Assessment & Plan (1) Neck pain on right side: Symptoms appear noncardiac in nature. Troponins, EKG and echocardiogram not concerning Given mild pleuritic complaints on initial presentation and recent long air travel, borderline d-dimer,Lower extremity duplex will be ordered We will make no other changes in medications and if study returns negative patient may be discharged to follow-up with primary care physician Return to see myself in 3 months time (2) Right-sided chest pain: As above (3) Hypothyroidism: Patient on replacement with pending lab work we will add TSH to previously drawn lab work today if History of Present Illness Reason for Consultation: Right neck pain Requesting Physician: Dr. Diaz Attending Physician: Elizabeth iVctoria, DO History of Present Illness Patient is a 64-year-old female who I previously followed as an outpatient with issues as noted 1. Chronic atrial and ventricular ectopy in the setting of acute illness, chemotherapy 2. Mild valvular heart disease with aortic sclerosis and mild aortic and mitral insufficiency 3. Hypothyroidism 4. Prior uterine ovarian carcinoma status post chemotherapy. Patient is referred now having presented to the emergency room last night after developing right neck pain that ultimately radiated to the shoulder and chest symptoms are worse with movement. Notes no tachypalpitations syncope near syncope orthopnea or worsening peripheral edema. No exertional relationship. No recent exertional activities or injuries. No fevers chills or productive cough.. No bleeding difficulties. Appetite and weight stable. No change in exercise tolerance or activity No issues with hypertension, diabetes. Has recently returned from overseas travel, long flight Pain relieved with Toradol in the emergency room. Troponin is nondetectable x2 EKG reveals minor nonspecific T-segment changes not significant change from prior studies Echocardiogram preserved LV systolic function Allergies Allergy/AdvReac Type Severity Reaction Status Date / Time mivacurium Allergy Severe RASH, Verified 09/20/19 03:43 SHORT OF BREATH azithromycin Allergy Intermediate SOB, RASH Verified 09/20/19 03:43 lorazepam Allergy Intermediate hallucinati Verified 09/20/19 03:43 ons cephalexin Allergy Mild RASH Verified 09/20/19 03:43 chlorhexidine Allergy Mild itchy and Verified 09/20/19 03:43 burning hydrocortisone Allergy Mild RASH Verified 09/20/19 03:43 mometasone furoate Allergy Mild RASH Verified 09/20/19 03:43 nystatin Allergy Mild RASH Verified 09/20/19 03:43 propoxyphene Allergy Unknown DARVOCET- Verified 09/20/19 03:43 UNKNOWN RXN methocarbamol [From Robaxin] AdvReac Severe SEVERE Verified 09/20/19 03:43 TREMORS miconazole [From Monistat 7] AdvReac Intermediate VAGINAL Verified 09/20/19 03:43 BURNING amoxicillin AdvReac Mild TIREDNESS Verified 09/20/19 03:43 clavulanic acid AdvReac Mild abdominal Verified 09/20/19 03:43 cramping hydromorphone AdvReac Mild hallucinati Verified 09/20/19 03:43 on/nausea moxifloxacin AdvReac Mild FATIGUE Verified 09/20/19 03:43 DELTAZONE/PREDIZONE Allergy Severe MENTALLY Uncoded 09/20/19 03:43 UNABLE TO FUNCTION OR DO ADL'S, AGGRESSIVENESS. Home Medications Home Medications Medication Instructions Recorded Confirmed Type albuterol sulfate 2 puff INHALATION DIRECTED PRN 09/20/19 09/20/19 History calcium carbonate-vitamin D3 1 tab PO BID 09/20/19 09/20/19 History [Calcium 600 + D(3)] cholecalciferol (vitamin D3) 2,000 unit PO DAILY 09/20/19 09/20/19 History [Vitamin D3] diclofenac sodium [Voltaren] 2 g TOPICAL DIRECTED PRN 09/20/19 09/20/19 History erythromycin with ethanol 1 applic TOPICAL DIRECTED PRN 09/20/19 09/20/19 History levothyroxine 50 mcg PO DAILY 09/20/19 09/20/19 History magnesium 250 mg PO DAILY 09/20/19 09/20/19 History potassium chloride 10 meq PO DAILY 09/20/19 09/20/19 History Patient History Medical History Ovarian cancer PVCs (premature ventricular contractions) Uterine cancer Family History Other No pertinent family history in first degree relatives Social History Preferred Language: Surinamese Communication Ability: Effective 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 Beliefs That Will Affect Care: None Current Living Situation: Alone Feels Safe at Home: Yes Safety Concerns: Feels Safe At This Time Smoking Status: Never smoker Do You Dip or Chew Tobacco: No ; Second Hand Exposure: Yes ; Hx Alcohol Use: Yes Alcohol type: beer and wine Hx Substance Use: No Review of Systems Review of Systems: All systems reviewed & are unremarkable except as noted in HPI & below Physical Exam Constitutional: WD/WN, vitals as above Eyes: PERRL, conjunctivae normal, anicteric sclerae ENMT: external ear and nose normal, oropharynx normal Neck: trachea midline, no thyromegaly Respiratory: normal respiratory effort, lungs clear to auscultation Cardiovascular: Rate/Rhythm: regular rate and regular rhythm Heart Sounds: normal S1, normal S2, + gallop (Chronic S4) and + murmur (Grade 1/6 to 2/6 systolic no diastolic) Palpation: normal PMI Vessels: normal carotid upstroke and radial pulses present; no JVD and no carotid bruit Extremities: + edema (Trace) Gastrointestinal (Abdomen): normal bowel sounds, soft, nontender, no hepatosplenomegaly Musculoskeletal: no cyanosis or clubbing, extremities motor strength 5/5 No palpable cord or Homans Skin: no rashes, warm and dry Neurologic: PERRL, EOMI, accommodation nl, no face palsy, no dysarthria Psychiatric: A+Ox3, euthymic affect Results & Data Vital Signs (Past 12 Hours) Vital Signs Temp Pulse Pulse Resp BP BP Pulse Ox 09/20/19 07:28 36.5 C 77 18 132/66 97 09/20/19 06:06 36.6 C 78 16 159/78 H 100 09/20/19 05:30 75 14 139/85 97 09/20/19 05:00 70 15 137/82 95 09/20/19 04:30 83 21 170/85 H 97 09/20/19 04:19 87 20 158/95 H 09/20/19 04:00 74 14 97 09/20/19 03:30 77 19 96 09/20/19 03:27 79 24 99 09/20/19 03:24 81 28 H 169/94 H 98 09/20/19 03:23 77 20 99 09/20/19 03:11 36.3 C L 80 16 150/82 H 98
--- NOTE | 2019-09-20 11:42 | Ultrasound Report ---
US venous doppler LE BI CLINICAL HISTORY: 64 years-old Female presenting with borderline d dimer, pleuritic pain, over[place] ight. TECHNIQUE: Real-time grayscale and color and spectral Doppler ultrasound imaging of the veins of the bilateral lower extremities was performed. Compression and augmentation were also utilized. COMPARISON: 12/01/2016. FINDINGS: RIGHT: Common femoral vein: Patent. Greater saphenous vein (superficial): Patent. Deep femoral vein: Patent. Femoral vein: Patent. Popliteal vein: Patent. Calf veins: Patent. LEFT: Common femoral vein: Patent. Greater saphenous vein (superficial): Patent. Deep femoral vein: Patent. Femoral vein: Patent. Popliteal vein: Patent. Calf veins: Patent. Other: None. IMPRESSION: No evidence of deep venous thrombosis. Electronically signed by: Alin Santos M.D. 09/20/2019 11:41 AM
[2019-09-20 12:52] LABS: Troponin I < 0.015 ng/ml (0-0.045)
--- NOTE | 2019-09-20 12:54 | Discharge Summary ---
Date of Service September 20, 2019 Admission HPI Per Admitting Provider HISTORY OF PRESENT ILLNESS: This is a 64-year-old female with past medical history significant for hypothyroidism, history of reactive depression, history of uterine and ovarian cancer status post hysterectomy with oophorectomy and status post 3 cycles of chemo, history of ventricular ectopy, was on beta david for 3 months in the past, chronic rhinitis, history of left Loomis's palsy, hip dysplasia who lives alone, comes because of chest pain. The patient says before she went to sleep, she had right-sided neck pain and in the night she woke up and the neck pain radiated to the chest, moderate in severity. She could not take a deep breath causing the pain to be more, so she drove herself to the ER. From the parking lot she walked into the ER, she had to hunch her shoulders and seemed to be making the pain little worse. In the ER, she got aspirin and Toradol. Neck pain, chest pain got resolved now, she is resting comfortably. She still has some mild pain while taking deep breath. Resting comfortably and hemodynamically stable. Denies any shortness of breath, no nausea, sweating or dizziness this episode. No fever, no chills, has on and off dry cough since a month. No headaches, no blurred visions, no earache, no runny nose, no sore throat, no dysphagia. Appetite is okay. Sleeps okay. Otherwise, ambulates and climbs steps okay without any problems. No abdominal pain. Normal bowel and bladder movements. No black stools or blood in stools, no burning micturition or hematuria. No swelling, no rash. Admission Exam Per Admitting Provider PHYSICAL EXAMINATION: GENERAL: The patient is of moderate build, not in acute distress. VITAL SIGNS: Temperature 36.3, pulse 70, respiratory rate 15, blood pressure 137/82, oxygen 98% room air. HEENT: No pallor, no icterus. Pupils equal, round, reactive to light. NECK: No JVD. No lymphadenopathy, no carotid bruit. CARDIOVASCULAR: S1, S2 heard, regular rate and rhythm, no murmur, no gallop. RESPIRATORY SYSTEM: Normal AP diameter. No accessory muscle use. No wheezing, no crackles. ABDOMEN: Soft, bowel sounds present, nontender. No distention. CENTRAL NERVOUS SYSTEM: Cranial nerves II-XII grossly nonfocal. EXTREMITIES: No edema, no erythema. Principal Diagnosis atypical chest pain Discharge Exam CONSTITUTIONAL: WNWD, vitals as above, generally well-appearing EYES: normal conjunctivae, no scleral icterus ENT: MMM RESPIRATORY: clear to auscultation bilaterally, no crackles, rales or wheezes, normal respiratory effort CARDIOVASCULAR: regular rate and rhythm, S1 and 2 heard without murmurs, gallops or rubs, no JVD, no peripheral edema CHEST: inspection of chest was normal GASTROINTESTINAL: soft, nontender, nondistended MUSCULOSKELETAL: strength 5/5 throughout, head is normocephalic and atraumatic, normal palpation of chest wall without tenderness SKIN: warm and dry NEUROLOGIC: CN 2-12 grossly intact, no gross focal deficits. PSYCHIATRIC: alert cooperative and oriented to person, place and time. Discharge Data Allergies Allergy/AdvReac Type Severity Reaction Status Date / Time mivacurium Allergy Severe RASH, Verified 09/20/19 03:43 SHORT OF BREATH azithromycin Allergy Intermediate SOB, RASH Verified 09/20/19 03:43 lorazepam Allergy Intermediate hallucinati Verified 09/20/19 03:43 ons cephalexin Allergy Mild RASH Verified 09/20/19 03:43 chlorhexidine Allergy Mild itchy and Verified 09/20/19 03:43 burning hydrocortisone Allergy Mild RASH Verified 09/20/19 03:43 mometasone furoate Allergy Mild RASH Verified 09/20/19 03:43 nystatin Allergy Mild RASH Verified 09/20/19 03:43 propoxyphene Allergy Unknown DARVOCET- Verified 09/20/19 03:43 UNKNOWN RXN methocarbamol [From Robaxin] AdvReac Severe SEVERE Verified 09/20/19 03:43 TREMORS miconazole [From Monistat 7] AdvReac Intermediate VAGINAL Verified 09/20/19 03:43 BURNING amoxicillin AdvReac Mild TIREDNESS Verified 09/20/19 03:43 clavulanic acid AdvReac Mild abdominal Verified 09/20/19 03:43 cramping hydromorphone AdvReac Mild hallucinati Verified 09/20/19 03:43 on/nausea moxifloxacin AdvReac Mild FATIGUE Verified 09/20/19 03:43 DELTAZONE/PREDIZONE Allergy Severe MENTALLY Uncoded 09/20/19 03:43 UNABLE TO FUNCTION OR DO ADL'S, AGGRESSIVENESS. Consultations 09/20/19 04:42 ED Decision to Admit Stat Ordered Studies 09/20/19 10:12 US venous doppler [facility] Urgent Hospital Course (1) Atypical chest pain: 64-year-old female with a family history of CAD and no other risk factors presented with acute onset of right lower neck pain radiating into her central chest area. She was given tramadol in the ER which improved her pain. She was also given Toradol 30 mg IV, aspirin 324 mg p.o. Chest x-ray was unremarkable. Consideration was given to possible blood clot as she had a recent international trip. A d-dimer was negative and lower extremity Dopplers were performed and negative. Her initial troponin was negative and serial troponins were negative. She remained in sinus rhythm on telemetry overnight. EKG revealed normal sinus rhythm with a nonspecific T wave abnormality with no evidence of acute ischemia. Her pain did not recur and the following morning cardiology saw her and felt the pain was related to a noncardiac etiology. She had a repeat echocardiogram that revealed an ejection fraction of 60 to 65% with normal left ventricular systolic function and normal wall motion. She had mild aortic regurgitation. At time of discharge she was mentating emulating at baseline and tolerating p.o. She was afebrile and oxygenating well on room air. She was pain-free. She was sent home in stable condition with close primary care follow-up recommended. Total Time Total Time Spent Total Time Spent (In Minutes): 60 Total Time Includes: Examination of the Patient, Discharge Planning, Medication Reconciliation, Communication With Other Providers and Other (arrange followup) Discharge Plan Discharge Items Patient Disposition: Home - Self-Care Reason For Visit: CHEST PAIN Discharge Diagnosis: atypical chest pain Condition on Discharge: Good Activity: Resume your previous activity Non-emergency contact: Primary Care Provider Call non-emergency contact if: you have any medication questions, your symptoms worsen, your pain is not controlled, your pain is worsening, your pain is unusual for you, your pain is concerning for you and you have a fever Follow-up/Referrals: Jose Ramon Brown DO [Primary Care Provider] - Diet: Regular Addtl Attending Provider Instructions: It is recommended that you followup with you primary care provider within one week of discharge. 09/25/2019 11:10 AM Jose Ramon Brown DO [facility] Please follow-up with Cardiology as recommended. It was a pleasure taking care of you! Please call if you have any questions or problems. You can reach a [facility] hospitalist on duty at [facility] 24 hours a day by calling [phone]. Take care of yourself. Elizabeth Victoria, DO [facility] Hospitalist Pending Studies at Discharge: No Stand-Alone Forms: Call Back Authorization, My [facility], Smoking Cessation Medications and DC Order Prescriptions: New tramadol 50 mg tablet 50 mg PO Q6H PRN (Reason: pain) Qty: 20 RF: 0 Continued potassium chloride 10 mEq Capsule, Extended Release 10 meq PO DAILY RF: 0 calcium carbonate-vitamin D3 [Calcium 600 + D(3)] 600 mg(1,500mg) -200 unit Tablet 1 tab PO BID RF: 0 levothyroxine 50 mcg Tablet 50 mcg PO DAILY RF: 0 magnesium 250 mg Tablet 250 mg PO DAILY RF: 0 albuterol sulfate 90 mcg/actuation Hfa Aerosol Inhaler 2 puff INHALATION DIRECTED PRN (Reason: 15 MIN PRIOR TO EXERCISE.) RF: 0 erythromycin with ethanol 2 % solution 1 applic topical DIRECTED PRN (Reason: [place] AREAS) RF: 0 diclofenac sodium [Voltaren] 1 % Gel 2 g TOPICAL DIRECTED PRN (Reason: Pain) RF: 0 cholecalciferol (vitamin D3) [Vitamin D3] 2,000 unit Capsule 2,000 unit PO DAILY RF: 0 Discharge Orders: Discharge Order (Routine); Ordered 09/20/19 Ordered By: Elizabeth Victoria Admission Data Admit Date/Time: 09/20/19 05:22 Attending Provider: Elizabeth Victoria Admit Provider: Iglesia Diaz Primary Care Provider: Jose Ramon Brown Other Providers: Iglesia Diaz
== END 2019-09-20 14:37 | disposition home or self-care (01) ==
LOC: ED 03:08 → 2E 03:08